=== PATIENT | female | born 1980 | race Caucasian/White ===

== ENCOUNTER → 2024-02-28 13:12 | Outpatient (REF) | payer OTHER, SELFPAY | LOC: RAD 13:12 | PROVIDERS: ATTENDING PHYSICIAN Otolaryngology Facial Plastic Surgery; FAMILY PHYSICIAN Family Medicine | DX: J33.0 Polyp of nasal cavity (principal); J32.0 Chronic maxillary sinusitis; H93.13 Tinnitus, bilateral | CPT/HCPCS: 70486 ==

== ENCOUNTER 2024-05-06 20:58 | Emergency (ER) | payer OTHER, SELFPAY ==
[2024-05-06 20:59] VITALS: BP 136/88
--- NOTE | 2024-05-06 21:36 | ED.GENMED ---
History of Present Illness
General
Chief Complaint: Eye Problems
Source: patient
Exam Limitations: none
Time Seen by Provider: 05/06/24 21:07
Nursing documentation reviewed up to this point in time: agreed with
History of Present Illness
History of Present Illness:
43-year-old female presents with left eye pain and swelling and fever she has had some drainage from her eyes for several months seen in ENT had a CAT scan told she did not polyps was to see Dr. Zhu the ophthalmology has not seen him yet,
developed increased pain and fever with swelling the past day or so, thought it was allergies, 2 of her 4 children have tear duct blockages have required surgery patient is never had any issues with her tear ducts, she feels nauseous,
Past History
Past History
ED Past Medical History: Other (chronic abdominap/elvic pain associated with menses, syncope (vasovagal) )
ED Past Surgical History: Other (Supraumbilical hernia mesh repair)
Social History
Tobacco: Non-smoker
Alcohol: Occasional
Drug: None
Personal: Single
Living: with family
Employment: Employed
Family History
Family History: Other (non-contributory )
Review of Systems
Review of Systems
All Other Systems: Not applicable
Constitutional: Reports fever
EENT: Reports other (Pain around the eye)
Respiratory: Reports no symptoms
Cardiac: Reports no symptoms
ABD/GI: Reports nausea
Phy Exam
Physical Exam
Physical Exam:
Physical Exam
General: no apparent distress, not acutely ill
Neck: Tenderness under the left medial canthus no proptosis
Heart: Tachycardic
Lungs: no acute respiratory distress. clear bilaterally
Neuro: alert and oriented. no focal neurological deficits
Skin: no rash
Psychiatric: well kept. interactive and cooperative
Extremities: no edema.
Course
Orders/Labs/Results
Orders:
Orders
05/06/24 21:25
CT Orbits With Iv Contrast Urgent
Comment:
Reason For Exam: fever pain
0.9% Sodium Chloride 1000 ml [Nss] 1,000 ml IV BOLUS
Acetaminophen [Tylenol] 1,000 mg PO NOW STA
Ketorolac [Toradol] 30 mg IV NOW STA
05/06/24 21:26
Ondansetron Injectable [Zofran] 4 mg IV NOW STA
05/06/24 21:29
CefTRIAXone [Rocephin] 1,000 mg IV NOW STA
05/06/24 21:37
Add On- LAB Urgent
Tests Added?: Serum hCG qualitative
Visual Acuity- Treatment ONCE
05/06/24 21:56
Complete Blood Count/With Diff Urgent
Comprehensive Metabolic Panel Urgent
HCG, Serum Qualitative Screen Urgent
Comment: ADD ON
Blood Culture Q30M
TAZ Source: Blood/Venous
Specimen Description:
Blood Culture Q30M
TAZ Source: Blood/Venous
Specimen Description:
Abnormal Lab Results
05/06/24
21:56
WBC 19.9 H 10^3/uL
(4.8-10.8)
Abs Immat Gran (auto) 0.1 H 10^3/uL
(0-0.05)
Absolute Neuts (auto) 16.5 H 10^3/uL
(1.4-6.5)
Absolute Monos (auto) 1.1 H 10^3/uL
(0.1-0.6)
Neutrophils % 82.6 H %
(42.2-75.2)
Lymphocytes % 10.9 L %
(20.5-51.1)
Sodium 133 L mmol/L
(135-145)
Glucose 105 H mg/dl
(70-99)
Total Bilirubin 1.4 H mg/dl
(0.2-1.3)
05/06/24 21:56
05/06/24 21:56
Vital Signs
Initial and Last Documented VS:
Initial Vital Signs
Temp Pulse Resp BP Pulse Ox
100.6 F H 111 20 136/88 100
05/06/24 20:59 05/06/24 20:59 05/06/24 20:59 05/06/24 20:59 05/06/24 20:59
Last Documented Vital Signs
Temp Pulse Resp BP Pulse Ox
100 F 109 18 117/63 96
05/06/24 22:12 05/06/24 22:12 05/06/24 22:12 05/06/24 22:12 05/06/24 22:12
MDM/Problems Addressed
Differential Diagnosis Includes:
Orbital cellulitis preseptal cellulitis tear duct infection
MDM/Problems Addressed:
Pain around the eye with fever
*Critical Care Note
Total Time (30-74mins, 75-104mins- exclusive of procedures): Not Applicable
Update Note
Update Note:
update
labs noted, ct noted
Patient feeling better after fluids meds and antibiotic
will dc with augmentin, pcp optho f/u arranged for tomorrow at 1215
ED Attending Note
-
Portions of this chart may have been created with voice recognition software.� Occasional wrong word or��sound alike� substitutions may have occurred due to the inherent limitations of voice recognition software.
Discharge Plan
Departure
Patient Disposition: Home (Routine Discharge)
Date of Disposition: 05/06/24
Time of Disposition: 23:26
Patient with high blood pressure during this ER visit?: No
Condition: Good
Discharge Problem:
Dacrocystitis
Instructions: Tear Duct Infection
Prescriptions:
New
amoxicillin-pot clavulanate 875-125 mg tablet
1 tab PO Q12H Qty: 20 0RF
ketorolac 10 mg tablet
10 mg PO Q8H PRN (Reason: Pain) Qty: 10 0RF
Rx Instructions:
maximum total duration of 5 days from all oral, intranasal, or parenteral formulations
No Action
[id number] fum-folic 1 EACH tablet
1 ea PO DAILY
Referrals:
Mark Zhu MD [Active] - Next open appointment
Gurvinder Aj DO [Family Provider] -
Activity Restrictions/Additional Instructions:
Antibiotics as prescribed, pain meds as prescribed, follow-up with Dr. Thurston tomorrow [id number]
Interventions
Interventions:
*Risk Screen - Suicide Last Done: 05/06/24 21:55
*General Assessment Last Done: 05/06/24 21:55
*Neglect/Abuse Screening Last Done: 05/06/24 21:55
ED- Fall Risk Assessment Last Done: 05/06/24 21:55
*ED COVID-19 Vaccine History Last Done: 05/06/24 21:55
Discharge Date and Time
Print Language: SLOVAK
[2024-05-06] MEDS: TYLENOL 1000 MG PO (21:49)
[2024-05-06] MEDS: TORADOL 30 MG IV (21:57)
[2024-05-06] MEDS: NSS 1000 IV (21:58)
[2024-05-06] MEDS: ZOFRAN 4 MG IV (22:00)
[2024-05-06] MEDS: ROCEPHIN 1000 MG IV (22:01)
[2024-05-06 22:04] VITALS: BMI 25.4
[2024-05-06 22:11] LABS: % Basophils 0.3 % (0-2); % Eosinophils 0.2 % (0-6); % Immature Granulocytes 0.5 % (0-0.5); % Lymphocytes 10.9 % (20.5-51.1); % Monocytes 5.5 % (1.7-9.3); % Neutrophils 82.6 % (42.2-75.2); Absolute Basophils 0.1 10^3/uL (0-0.2); Absolute Immature Granulocytes 0.1 10^3/uL (0-0.05); Absolute Lymphocytes 2.2 10^3/uL (1.2-3.4); Absolute Monocytes 1.1 10^3/uL (0.1-0.6); Absolute Neutrophils 16.5 10^3/uL (1.4-6.5); Hematocrit 38.2 % (37.0-47.0); Hemoglobin 12.7 g/dL (12.0-16.0); Mean Corp Hgb Conc. 33.2 g/dL (33.0-37.0); Mean Corpuscular Hgb 30.1 pg (27.0-31.0); Mean Corpuscular Volume 90.5 fL (81.0-99.0); Mean Platelet Volume 9.6 fL (7.4-10.4); Nucleated Red Blood Cells % 0 %; Platelet Count 333 10^3/uL (130-400); Red Blood Cell Count 4.22 10^6/uL (4.20-5.40); Red Cell Dist. Width 12.1 % (11.5-14.5); White Blood Cell Count 19.9 10^3/uL (4.8-10.8)
[2024-05-06 22:12] VITALS: BP 117/63
[2024-05-06 22:21] LABS: HCG, Serum Qualitative Screen Negative
[2024-05-06 22:26] LABS: ALT (SGPT) 15 U/L (0-35); AST (SGOT) 19 U/L (14-36); Albumin 4.8 g/dl (3.5-5.0); Alkaline Phosphatase 98 U/L (38-126); Blood Urea Nitrogen 10 mg/dl (7-17); Calcium 9.9 mg/dl (8.4-10.2); Carbon Dioxide 24 mmol/L (22-30); Chloride 98 mmol/L (98-107); Estimated Creatinine Clearance 91 ml/min; Glucose 105 mg/dl (70-99); Potassium 3.8 mmol/L (3.5-5.1); Sodium 133 mmol/L (135-145); Total Bilirubin 1.4 mg/dl (0.2-1.3); Total Protein 7.8 g/dl (6.3-8.2); eGFR > 60.00
== END 2024-05-06 23:53 | disposition home or self-care (01) ==
LOC: EMR 20:58
PROVIDERS: EMERGENCY PHYSICIAN Emergency Medicine; FAMILY PHYSICIAN Family Medicine
DX: H04.309 Unspecified dacryocystitis of unspecified lacrimal passage (principal)
CPT/HCPCS: 99284; 96374; 96375; 96361; 70481; 80053; 84703; 85025; 87040; Q9967